=== PATIENT | female | born 1995 | race Hispanic/Latino ===

== ENCOUNTER 2018-10-18 05:41 | Day surgery (SDC) | payer BC, MEDICAID ==
[2018-10-17 16:45] VITALS: BP 115/63
[2018-10-17 17:02] LABS: BASOPHILS % (AUTO) 0.6 % (0.0-5.0); EOSINOPHILS % (AUTO) 0.4 % (0.0-8.0); HEMATOCRIT 36.7 % (36-48); LYMPHOCYTES % (AUTO) 27.2 % (21.0-51.0); MEAN CORPUSCULAR HEMOGLOBIN 29.9 pg (27.0-33.0); MEAN CORPUSCULAR HGB CONC 33.5 g/dL (32.0-36.0); MONOCYTES % (AUTO) 4.5 % (3.0-13.0); NEUTROPHILS % (AUTO) 67.3 % (40.0-77.0); PLATELET COUNT (AUTO) 274 K/uL (130-400); RED BLOOD CELL COUNT(AUTO) 4.12 MIL/uL (4.00-5.50); RED CELL DISTRIBUTION WIDTH 13.3 % (11.0-15.5); WHITE BLOOD COUNT (AUTO) 10.4 K/uL (4.8-10.8)
[~2018-10-18] VITALS: Ht 166.4 cm; Wt 59.6 kg
[~2018-10-18 05:41] MED LIST: LACTATED RINGERS 1000ML 1,000 ML IV ONE
[2018-10-18 05:55] VITALS: BP 94/53
[2018-10-18] MEDS ORDERED: MIDAZOLAM HCL 1 MG/ML 2ML VIAL ONE (06:35)
[2018-10-18] MEDS ORDERED: FENTANYL CITRATE PF 50 MCG/1 ML 2ML VIAL ONE (06:36)
[2018-10-18] MEDS ORDERED: LIDOCAINE PF 2% 5ML ABBOJECT ONE (06:39)
[2018-10-18] MEDS ORDERED: OXYTOCIN 10 USP UNITS/ML ONE (06:39)
[2018-10-18] MEDS ORDERED: ONDANSETRON HCL 4 MG/2 ML VIAL ONE (06:40)
[2018-10-18] MEDS ORDERED: PROPOFOL 10 MG/ML 20ML VIAL IV ONE (06:40)
[2018-10-18 07:45] VITALS: BP 125/50
--- NOTE | 2018-10-18 07:45 | NUR ---
POST OP RECEIVED PT FROM PACU, S/P SUCTION D&C, ROSALINDA PAD IN PLACE WITH NO BLEEDING NOTED. PT AWAKE AND ALERT, VS STABLE ON ARRIVA. SPOUSE AT BEDSIDE.
[2018-10-18 08:00] VITALS: BP 118/50
[2018-10-18] MEDS ORDERED: LACTATED RINGERS 1000ML 1,000 ML IV SCH (08:00)
[2018-10-18 08:15] VITALS: BP 116/52
--- NOTE | 2018-10-18 08:15 | NUR ---
DC DC INSTRUCTIONS GIVEN PT SPOUSE, INSTRUCTED TO F/U WITH DR. REYES, PT/ PTS SPOUSE VERBALIZED UNDERSTANDING.
--- NOTE | 2018-10-18 08:20 | NUR ---
DC PT DC HOME VIA WC, NO DISTRESS NOTED. DENIES ANY PAIN OR DISCOMFORTS. ACCOMPANIED BY SPOUSE
== END 2018-10-18 08:20 | disposition home or self-care (01) ==
LOC: DAH 05:41
PROVIDERS: ATTEND Obstetrics & Gynecology
DX: O02.1 Missed abortion (principal); M41.9 Scoliosis, unspecified; Z83.3 Family history of diabetes mellitus; K21.9 Gastro-esophageal reflux disease without esophagitis
CPT/HCPCS: 36415; 59820; 85025; 86850; 86900; 86901; 88305; A4606; J2001; J2250; J2405; J2590; J2704; J3010; J7120 ×2

== ENCOUNTER 2019-08-31 11:35 | Observation (INO) | payer MEDICAID ==
[~2019-08-31] VITALS: Ht 167.6 cm; Wt 71.7 kg
[2019-08-31] MEDS ORDERED: LACTATED RINGERS 1000ML 1,000 ML IV SCH (12:00)
[2019-08-31 12:41] LABS: BASOPHILS % (AUTO) 0.1 % (0.0-5.0); HEMATOCRIT 32.1 % (36-48); LYMPHOCYTES % (AUTO) 6.5 % (21.0-51.0); MEAN CORPUSCULAR HEMOGLOBIN 27.4 pg (27.0-33.0); MEAN CORPUSCULAR HGB CONC 31.2 g/dL (32.0-36.0); MEAN CORPUSCULAR VOLUME 87.9 fL (79-99); MONOCYTES % (AUTO) 4.4 % (3.0-13.0); NEUTROPHILS % (AUTO) 88.4 % (40.0-77.0); PLATELET COUNT (AUTO) 250 K/uL (130-400); RED BLOOD CELL COUNT(AUTO) 3.65 MIL/uL (4.00-5.50); WHITE BLOOD COUNT (AUTO) 9.6 K/uL (4.8-10.8)
[2019-08-31 12:46] LABS: APPEARANCE,URINE Clear (CLEAR); BILIRUBIN,URINE Negative (NEGATIVE); COLOR,URINE Yellow (YELLOW); GLUCOSE, URINE (UA) Negative (NEGATIVE); KETONES,URINE Negative (NEGATIVE); LEUKOCYTE ESTERASE ,URINE Small (NEGATIVE); NITRATE,URINE Negative (NEGATIVE); OCCULT BLOOD,URINE Negative (NEGATIVE); PROTEIN,URINE Negative (NEGATIVE); UROBILINOGEN,URINE 0.2 mg/dL (0.2-1.0)
[2019-08-31 13:00] VITALS: BP 107/57
[2019-08-31 13:02] LABS: BACTERIA,URINE Rare /HPF (None Seen); RBC,URINE None Seen /HPF (0-1); SQUAMOUS EPITHELIAL CELL,UR Few /HPF (0-2); WBC,URINE 0-1 /HPF (0-1)
[2019-08-31] MEDS ORDERED: ACETAMINOPHEN 325 MG TAB PO ONE (14:30)
[2019-08-31] MEDS ORDERED: PROMETHAZINE HCL 25 MG/ML 1ML AMPULE IM SCH (14:30)
== END 2019-08-31 17:35 | disposition home or self-care (01) ==
LOC: LDH 11:35 → WSH 11:36
PROVIDERS: ADMIT Obstetrics & Gynecology; ATTEND Obstetrics & Gynecology
DX: O21.2 Late vomiting of pregnancy (principal); Z3A.35 35 weeks gestation of pregnancy
CPT/HCPCS: 36415; 81001; 85025; 86645; 86695 ×2; 86723; 86778; 87804 ×2; 96360; 96361; 96372; G0378 ×6; J2550; J7120; 86644; 86694; 86762; 86777

== ENCOUNTER 2019-09-25 18:00 | Inpatient (IN) | payer MEDICAID ==
[~2019-09-25] VITALS: Ht 165.1 cm; Wt 75.7 kg
[2019-09-25] MEDS ORDERED: OXYTOCIN-LR 20 UNITS/1000 ML 1,000 ML IV SCH (19:30)
[2019-09-25 20:00] VITALS: BP 107/58
[2019-09-25 20:14] LABS: APPEARANCE,URINE Clear (CLEAR); BILIRUBIN,URINE Negative (NEGATIVE); COLOR,URINE Yellow (YELLOW); GLUCOSE, URINE (UA) Negative (NEGATIVE); KETONES,URINE Negative (NEGATIVE); LEUKOCYTE ESTERASE ,URINE Moderate (NEGATIVE); NITRATE,URINE Negative (NEGATIVE); OCCULT BLOOD,URINE Negative (NEGATIVE); PROTEIN,URINE Negative (NEGATIVE); UROBILINOGEN,URINE 0.2 mg/dL (0.2-1.0)
[2019-09-25 20:43] LABS: HEMATOCRIT 30.8 % (36-48); MEAN CORPUSCULAR HEMOGLOBIN 26.2 pg (27.0-33.0); MEAN CORPUSCULAR HGB CONC 30.8 g/dL (32.0-36.0); MEAN CORPUSCULAR VOLUME 85.1 fL (79-99); PLATELET COUNT (AUTO) 228 K/uL (130-400); RED BLOOD CELL COUNT(AUTO) 3.62 MIL/uL (4.00-5.50); RED CELL DISTRIBUTION WIDTH 13.9 % (11.0-15.5); WHITE BLOOD COUNT (AUTO) 8.6 K/uL (4.8-10.8)
[2019-09-25 20:44] LABS: BACTERIA,URINE Few /HPF (None Seen); RBC,URINE None Seen /HPF (0-1)
[2019-09-26] MEDS: LACTATED RINGERS 1000ML 1,000 ML IV PRN ×2 (03:23→08:07)
[2019-09-26] MEDS ORDERED: OXYTOCIN 10 USP UNITS/ML 20 UNIT in LACTATED RINGERS 1000ML 1,000 ML IV SCH (04:00)
[2019-09-26] MEDS ORDERED: PROMETHAZINE HCL 25 MG/ML 1ML AMPULE IM SCH ×2 (07:30→11:45)
[2019-09-26] MEDS ORDERED: MEPERIDINE-PF 25 MG/ML SYG IVP SCH ×2 (07:30→11:45)
[2019-09-26] MEDS ORDERED: OXYTOCIN-LR 20 UNITS/1000 ML 1,000 ML IV SCH (12:45)
[2019-09-26] MEDS ORDERED: LANOLIN 30GM OINTMENT TP PRN (12:45)
[2019-09-26] MEDS ORDERED: DIPH,PERTUSS(ACELL),TET VAC/PF 0.5 ML VIAL IM PRN (12:45)
[2019-09-26] MEDS ORDERED: MEASLES/MUMPS/RUBELLA VACCINE, LIVE 0.5 ML/VIAL SQ PRN (12:45)
[2019-09-26] MEDS ORDERED: WITCH HAZEL 1 PAD TP PRN (12:45)
[2019-09-26] MEDS ORDERED: BENZOCAINE/LANOLIN/ALOE VERA 60 ML AEROSOL TP PRN (12:45)
[2019-09-26] MEDS ORDERED: ACETAMINOPHEN-CODEINE 300/30MG TAB PO PRN (12:45)
[2019-09-26] MEDS ORDERED: ACETAMINOPHEN 325 MG TAB PO PRN (12:45)
[2019-09-26 14:26] VITALS: BP 119/72
[2019-09-26] MEDS: IBUPROFEN 600 MG TABLET PO PRN ×2 (14:53→21:15)
[2019-09-26] MEDS ORDERED: PNV1TABL17 PO (16:04)
[2019-09-26 19:28] VITALS: BP 109/66
[2019-09-26] MEDS: DOCUSATE SODIUM 100 MG CAP PO SCH (21:12)
[2019-09-26 23:51] VITALS: BP 90/64
[2019-09-27 03:17] VITALS: BP 97/57
[2019-09-27 05:18] LABS: MEAN CORPUSCULAR HEMOGLOBIN 25.9 pg (27.0-33.0); MEAN CORPUSCULAR VOLUME 86.3 fL (79-99); PLATELET COUNT (AUTO) 194 K/uL (130-400); RED BLOOD CELL COUNT(AUTO) 3.36 MIL/uL (4.00-5.50); RED CELL DISTRIBUTION WIDTH 13.9 % (11.0-15.5); WHITE BLOOD COUNT (AUTO) 14.1 K/uL (4.8-10.8)
[2019-09-27 07:11] LABS: HEPATITIS Bs ANTIGEN SCREEN P Negative (Negative)
[2019-09-27 07:41] VITALS: BP 115/62
[2019-09-27] MEDS: IBUPROFEN 600 MG TABLET PO PRN (08:54)
[2019-09-27] MEDS: DOCUSATE SODIUM 100 MG CAP PO SCH (08:54)
[2019-09-27 11:36] VITALS: BP 108/64
--- NOTE | 2019-09-27 11:55 | NUR ---
verbal and written discharge instructions given, informed of the follow up appointment, prescription given, all questions answered, informed to call the doctor for future concerns, pt voiced understanding to all things discussed. Addendum: 09/27/19 at 1228 by BRICE SANTOS RN Amended: Links added.
--- NOTE | 2019-09-27 14:00 | NUR ---
pt is dismissed in stable condition, brought to private car via wheelchair by Mae Fontenotpcp Addendum: 09/27/19 at 1406 by BRICE SANTOS RN Amended: Links added.
== END 2019-09-27 14:00 | disposition home or self-care (01) | DRG 560 ==
LOC: LDH 18:00 → UNDOADMIN 18:00 → WSH 09-26 14:25
PROVIDERS: ADMIT Obstetrics & Gynecology; ATTEND Obstetrics & Gynecology
PROC: 10E0XZZ Delivery of Products of Conception, External Approach (ICD-10-PCS; principal; 2019-09-26)
PROC: 3E0234Z Introduction of Serum, Toxoid and Vaccine into Muscle, Percutaneous Approach (ICD-10-PCS; 2019-09-26)
PROC: 3E0234Z Introduction of Serum, Toxoid and Vaccine into Muscle, Percutaneous Approach (ICD-10-PCS; 2019-09-26)
DX: O69.1XX0 Labor and delivery complicated by cord around neck, with compression, not applicable or unspecified (principal); Z37.0 Single live birth; Z23 Encounter for immunization; Z3A.39 39 weeks gestation of pregnancy
CPT/HCPCS: 36415; 81001; 85027; 86592; 86850; 86900; 86901; 87088; 87340; A4351; G0378; J2175; J2550; J2590; J7120